=== PATIENT | female | born 1945 | race Caucasian/White ===

== ENCOUNTER → 2021-05-06 | Outpatient (CLI) | payer OTHER | END | disposition home or self-care (01) | LOC: RAH 11:08 | PROVIDERS: ATTEND Internal Medicine Critical Care Medicine | DX: H34.213 Partial retinal artery occlusion, bilateral (principal) | CPT/HCPCS: 93880 ==

== ENCOUNTER 2021-09-23 13:11 | Inpatient (IN) | payer OTHER ==
[~2021-09-23] VITALS: Ht 180.3 cm; Wt 103.2 kg
[2021-09-23 14:15] LABS: BASOPHILS % (AUTO) 0.2 % (0.0-5.0); HEMATOCRIT 39.6 % (36-48); LYMPHOCYTES % (AUTO) 9.7 % (21.0-51.0); MEAN CORPUSCULAR HEMOGLOBIN 30.6 pg (27.0-33.0); MEAN CORPUSCULAR HGB CONC 35.4 g/dL (32.0-36.0); MEAN CORPUSCULAR VOLUME 86.7 fL (79-99); MONOCYTES % (AUTO) 8.4 % (3.0-13.0); NEUTROPHILS % (AUTO) 81.3 % (40.0-77.0); PLATELET COUNT (AUTO) 216 K/uL (130-400); RED BLOOD CELL COUNT(AUTO) 4.57 MIL/uL (4.00-5.50); RED CELL DISTRIBUTION WIDTH 12.8 % (11.0-15.5); WHITE BLOOD COUNT (AUTO) 9.2 K/uL (4.8-10.8)
[2021-09-23 14:27] LABS: CREATININE 1.1 mg/dL (0.5-1.5); POTASSIUM 3.6 mmol/L (3.5-5.1)
[2021-09-23 14:28] LABS: INR 1.06 (0.85-1.15); PROTHROMBIN TIME 11.5 SEC (9.6-11.6)
[2021-09-23 14:29] LABS: PARTIAL THROMBOPLASTIN TIME 24.2 SEC (26.3-35.5)
[2021-09-23 14:33] LABS: BILIRUBIN,TOTAL 0.9 mg/dL (0.2-1.0); TOTAL PROTEIN, SERUM 7.7 g/dL (6.0-8.3)
[2021-09-23 14:36] LABS: B-TYPE NATRIURETIC PEPTIDE 233 pg/mL (0-100)
[2021-09-23] MEDS ORDERED: HYDRALAZINE 20MG/ML VIAL IV PRN (19:30)
[2021-09-23] MEDS: ONDANSETRON 4MG INJ IV PRN (19:44)
[2021-09-23] MEDS: LACTATED RINGERS 1000ML 1,000 ML IV SCH (19:44)
[2021-09-23] MEDS ORDERED: AEC81 PO (20:11)
[2021-09-23] MEDS ORDERED: INSU3INS3 SQ (20:11)
[2021-09-23] MEDS ORDERED: EMPA25TA PO (20:11)
[2021-09-23] MEDS ORDERED: FLUO20CA36 PO (20:11)
[2021-09-23] MEDS ORDERED: DICLOFENAC (20:11)
[2021-09-23] MEDS ORDERED: CELE100 PO (20:11)
[2021-09-23] MEDS ORDERED: SEMA1PEN3 SQ (20:11)
[2021-09-23] MEDS ORDERED: GLIP10TA9 PO (20:11)
[2021-09-23] MEDS ORDERED: PREG150C PO (20:11)
[2021-09-23] MEDS ORDERED: NITR0.4T SL (20:11)
[2021-09-23] MEDS ORDERED: DICLOFENAC 1% TP (20:11)
[2021-09-23] MEDS ORDERED: PIOG15TA66 PO (20:11)
[2021-09-23] MEDS ORDERED: OLOP2.5D16 OP (20:11)
[2021-09-23] MEDS ORDERED: FURO20TA4 PO (20:11)
[2021-09-23] MEDS ORDERED: LOSA25TA41 PO (20:11)
[2021-09-23] MEDS ORDERED: DIPH25TA20 PO (20:11)
[2021-09-23] MEDS ORDERED: ATEN50TA PO (20:11)
[2021-09-23] MEDS ORDERED: DULO60CA64 PO (20:11)
[2021-09-23 22:23] LABS: APPEARANCE,URINE Clear (CLEAR); BILIRUBIN,URINE Negative (NEGATIVE); COLOR,URINE Dark Yellow (YELLOW); GLUCOSE, URINE (UA) >=1000 mg/dL (NEGATIVE); KETONES,URINE 40 mg/dL (NEGATIVE); LEUKOCYTE ESTERASE ,URINE Negative (NEGATIVE); NITRATE,URINE Negative (NEGATIVE); OCCULT BLOOD,URINE Trace (NEGATIVE); PH,URINE 5.5 (5.0-8.0); PROTEIN,URINE 300 mg/dL (NEGATIVE)
[2021-09-23 22:37] LABS: AMPHET/METH SCREEN,URINE NEGATIVE (NEGATIVE); BARBITURATE SCREEN, URINE NEGATIVE (NEGATIVE); BENZODIAZEPINES SCREEN,URINE NEGATIVE (NEGATIVE); CANNABINOID SCREEN,URINE NEGATIVE (NEGATIVE); COCAINE SCREEN,URINE NEGATIVE (NEGATIVE); OPIATE SCREEN,URINE NEGATIVE (NEGATIVE); PHENCYCLIDINE SCREEN,URINE NEGATIVE (NEGATIVE)
[2021-09-23 22:48] LABS: WBC,URINE 0-1 /HPF (0-1)
[2021-09-23 22:49] LABS: BACTERIA,URINE None Seen /HPF (None Seen); SQUAMOUS EPITHELIAL CELL,UR Few /HPF (0-2)
[2021-09-23 22:50] LABS: MUCUS,URINE Moderate LPF (None Seen)
[2021-09-24] VITALS (7 sets, daily range): BP systolic 143–168; BP diastolic 73–93
[2021-09-24] MEDS ORDERED: KETOROLAC 15MG/ML VIAL (15MG/ML) ONE (04:17)
[2021-09-24] MEDS ORDERED: KETOROLAC 15MG/ML VIAL (15MG/ML) IV ONE (04:30)
[2021-09-24] MEDS: LACTATED RINGERS 1000ML 1,000 ML IV SCH ×3 (05:08→23:38)
[2021-09-24 05:14] LABS: BASOPHILS % (AUTO) 0.1 % (0.0-5.0); HEMATOCRIT 37.6 % (36-48); LYMPHOCYTES % (AUTO) 8.6 % (21.0-51.0); MEAN CORPUSCULAR HEMOGLOBIN 30.6 pg (27.0-33.0); MEAN CORPUSCULAR HGB CONC 35.1 g/dL (32.0-36.0); MONOCYTES % (AUTO) 9.2 % (3.0-13.0); NEUTROPHILS % (AUTO) 81.6 % (40.0-77.0); PLATELET COUNT (AUTO) 229 K/uL (130-400); RED BLOOD CELL COUNT(AUTO) 4.32 MIL/uL (4.00-5.50); RED CELL DISTRIBUTION WIDTH 12.9 % (11.0-15.5); WHITE BLOOD COUNT (AUTO) 10.9 K/uL (4.8-10.8)
[2021-09-24 05:32] LABS: CREATININE 1.1 mg/dL (0.5-1.5); MAGNESIUM 1.5 mg/dL (1.80-2.40); PHOSPHORUS 3.1 mg/dL (2.5-4.9); POTASSIUM 3.4 mmol/L (3.5-5.1)
[2021-09-24 06:44] LABS: HEMOGLOBIN A1C 7.9 % (4.0-6.0)
[2021-09-24] MEDS: FAMOTIDINE 20MG VIAL IV SCH (08:02)
[2021-09-24] MEDS ORDERED: FUROSEMIDE 20MG VIAL IV SCH (09:00)
[2021-09-24] MEDS ORDERED: ASPIRIN 81 MG EC TAB PO SCH (09:00)
[2021-09-24] MEDS: INSULIN HUMULIN R 100 UNIT/ML 3ML SQ SCH ×2 (17:14→20:26)
[2021-09-24] MEDS ORDERED: ZOLPIDEM TARTRATE 5 MG TAB PO STA (23:31)
[2021-09-24] MEDS ORDERED: ZOLPIDEM TARTRATE 5 MG TAB ONE (23:35)
[2021-09-25] VITALS (10 sets, daily range): BP systolic 112–160; BP diastolic 51–98
[2021-09-25] MEDS: PHARMACY COMMUNICATION MISC SCH ×2 (00:30→02:59)
[2021-09-25 05:01] LABS: BASOPHILS % (AUTO) 0.3 % (0.0-5.0); EOSINOPHILS % (AUTO) 0.1 % (0.0-8.0); HEMATOCRIT 39.2 % (36-48); LYMPHOCYTES % (AUTO) 10.6 % (21.0-51.0); MEAN CORPUSCULAR HEMOGLOBIN 30.1 pg (27.0-33.0); MEAN CORPUSCULAR HGB CONC 33.9 g/dL (32.0-36.0); MEAN CORPUSCULAR VOLUME 88.7 fL (79-99); MONOCYTES % (AUTO) 10.5 % (3.0-13.0); PLATELET COUNT (AUTO) 209 K/uL (130-400); RED BLOOD CELL COUNT(AUTO) 4.42 MIL/uL (4.00-5.50); RED CELL DISTRIBUTION WIDTH 13.2 % (11.0-15.5); WHITE BLOOD COUNT (AUTO) 10.9 K/uL (4.8-10.8)
[2021-09-25 05:19] LABS: ALBUMIN 3.6 g/dL (3.5-5.0); POTASSIUM 3.1 mmol/L (3.5-5.1); TOTAL PROTEIN, SERUM 6.9 g/dL (6.0-8.3)
[2021-09-25] MEDS ORDERED: METOPROLOL TARTRATE 1 MG/ML 5ML VIAL IV STA (05:35)
[2021-09-25] MEDS: ENOXAPARIN SODIUM 40 MG/0.4 ML SYRINGE SQ SCH ×2 (05:50→10:01)
[2021-09-25] MEDS: POTASSIUM CHLORIDE 10% ELIXIR 20 MEQ/15 ML UDCUP PO PRN (05:51)
[2021-09-25] MEDS ORDERED: KCL 20 MEQ ERTAB PO PRN (06:00)
[2021-09-25] MEDS ORDERED: METOPROLOL SUCCINATE 50 MG TAB.SR.24H PO ONE (06:05)
[2021-09-25] MEDS: INSULIN HUMULIN R 100 UNIT/ML 3ML SQ SCH ×7 (06:10→21:00)
[2021-09-25] MEDS: METOPROLOL SUCCINATE 50 MG TAB.SR.24H PO SCH (06:12)
[2021-09-25] MEDS ORDERED: ATENOLOL 50 MG TABLET PO SCH (09:00)
[2021-09-25] MEDS ORDERED: METOPROLOL SUCCINATE 50 MG TAB.SR.24H PO SCH (09:00)
[2021-09-25] MEDS: FUROSEMIDE 20 MG TABLET PO SCH (09:59)
[2021-09-25] MEDS: KCL 20 MEQ ERTAB PO SCH (10:00)
[2021-09-25] MEDS: PREDNISONE 20 MG TABLET PO SCH (10:00)
[2021-09-25] MEDS: LOSARTAN 25 MG TABLET PO SCH (10:00)
[2021-09-25] MEDS: FAMOTIDINE 20MG VIAL IV SCH (10:01)
[2021-09-25] MEDS: VALACYCLOVIR HCL 500 MG TABLET PO SCH ×3 (10:01→21:24)
[2021-09-25] MEDS: ASPIRIN 81 MG EC TAB PO SCH (10:01)
[2021-09-25] MEDS: DULOXETINE HCL 30 MG CAP PO SCH (10:01)
[2021-09-25 15:12] LABS: POTASSIUM 3.2 mmol/L (3.5-5.1)
[2021-09-25] MEDS ORDERED: INSULIN GLARGINE 100 UNITS/ML 10 ML VIAL SQ SCH (21:00)
[2021-09-25] MEDS: LACTATED RINGERS 1000ML 1,000 ML IV SCH ×2 (21:23→21:30)
[2021-09-26 04:00] VITALS: BP 178/78
[2021-09-26 04:33] LABS: BASOPHILS % (AUTO) 0.1 % (0.0-5.0); HEMATOCRIT 38.9 % (36-48); LYMPHOCYTES % (AUTO) 12.7 % (21.0-51.0); MEAN CORPUSCULAR HEMOGLOBIN 30.2 pg (27.0-33.0); MEAN CORPUSCULAR HGB CONC 34.2 g/dL (32.0-36.0); MEAN CORPUSCULAR VOLUME 88.2 fL (79-99); MONOCYTES % (AUTO) 11.1 % (3.0-13.0); NEUTROPHILS % (AUTO) 75.6 % (40.0-77.0); PLATELET COUNT (AUTO) 255 K/uL (130-400); RED BLOOD CELL COUNT(AUTO) 4.41 MIL/uL (4.00-5.50); RED CELL DISTRIBUTION WIDTH 13.1 % (11.0-15.5); WHITE BLOOD COUNT (AUTO) 10.8 K/uL (4.8-10.8)
[2021-09-26 04:43] LABS: HEMOGLOBIN A1C 8.2 % (4.0-6.0)
[2021-09-26 04:50] LABS: ALBUMIN 3.3 g/dL (3.5-5.0); POTASSIUM 3.2 mmol/L (3.5-5.1); TOTAL PROTEIN, SERUM 6.7 g/dL (6.0-8.3)
[2021-09-26] MEDS: LACTATED RINGERS 1000ML 1,000 ML IV SCH (06:13)
[2021-09-26] MEDS: KCL 20 MEQ ERTAB PO SCH (06:19)
[2021-09-26] MEDS: INSULIN HUMULIN R 100 UNIT/ML 3ML SQ SCH ×7 (06:21→20:11)
[2021-09-26] MEDS: ENOXAPARIN SODIUM 40 MG/0.4 ML SYRINGE SQ SCH (07:14)
[2021-09-26] MEDS: PREDNISONE 20 MG TABLET PO SCH (07:14)
[2021-09-26] MEDS: FUROSEMIDE 20 MG TABLET PO SCH (07:15)
[2021-09-26] MEDS: ASPIRIN 81 MG EC TAB PO SCH (07:15)
[2021-09-26] MEDS: DULOXETINE HCL 30 MG CAP PO SCH (07:15)
[2021-09-26] MEDS: LOSARTAN 25 MG TABLET PO SCH (07:15)
[2021-09-26] MEDS: METOPROLOL SUCCINATE 50 MG TAB.SR.24H PO SCH (07:15)
[2021-09-26] MEDS: FAMOTIDINE 20MG TAB PO SCH (07:16)
[2021-09-26] MEDS ORDERED: BISACODYL 5 MG TABLET.DR PO SCH (07:30)
[2021-09-26 08:08] VITALS: BP 178/83
[2021-09-26] MEDS: VALACYCLOVIR HCL 500 MG TABLET PO SCH ×3 (09:11→20:02)
[2021-09-26] MEDS ORDERED: HYDROCHLOROTHIAZIDE 25 MG TABLET PO SCH (11:00)
[2021-09-26] MEDS ORDERED: LACTULOSE 20 GM/30 ML UDCUP PO SCH (11:00)
[2021-09-26] MEDS ORDERED: LOSARTAN 25 MG TABLET PO SCH (11:00)
[2021-09-26] MEDS ORDERED: BISACODYL 10 MG SUPP.RECT RC SCH (11:00)
[2021-09-26 11:43] VITALS: BP 179/90
[2021-09-26 16:00] VITALS: BP 152/74
[2021-09-26] MEDS ORDERED: METOPROLOL TARTRATE 1 MG/ML 5ML VIAL IV ONE ×2 (19:54→20:50)
[2021-09-26 20:00] VITALS: BP 125/68
[2021-09-26] MEDS: INSULIN GLARGINE 100 UNITS/ML 10 ML VIAL SQ SCH (20:11)
[2021-09-26 20:21] LABS: MAGNESIUM 1.8 mg/dL (1.80-2.40)
[2021-09-26 20:30] LABS: POTASSIUM 2.9 mmol/L (3.5-5.1)
[2021-09-26] MEDS: POTASSIUM CHLORIDE 10% ELIXIR 20 MEQ/15 ML UDCUP PO PRN (20:32)
[2021-09-26 20:33] LABS: APPEARANCE,URINE CLOUDY (CLEAR); BILIRUBIN,URINE NEGATIVE (NEGATIVE); COLOR,URINE YELLOW (YELLOW); GLUCOSE, URINE (UA) 250 mg/dL (NEGATIVE); KETONES,URINE NEGATIVE (NEGATIVE); LEUKOCYTE ESTERASE ,URINE NEGATIVE (NEGATIVE); NITRATE,URINE POSITIVE (NEGATIVE); OCCULT BLOOD,URINE NEGATIVE (NEGATIVE); PROTEIN,URINE 30 mg/dL (NEGATIVE); UROBILINOGEN,URINE 0.2 mg/dL (0.2-1.0)
[2021-09-26] MEDS: ACETAMINOPHEN 500 MG TABLET PO PRN (20:33)
[2021-09-26] MEDS: POTASSIUM CHLORIDE 20MEQ/100ML 100 ML IV PRN (20:35)
[2021-09-26 20:41] LABS: BACTERIA,URINE Moderate /HPF (None Seen); RBC,URINE 0-1 /HPF (0-1); WBC,URINE 0-1 /HPF (0-1)
[2021-09-26 20:42] LABS: AMORPHOUS SEDIMENT,UR Moderate /LPF (None Seen); MUCUS,URINE Rare LPF (None Seen); SQUAMOUS EPITHELIAL CELL,UR Few /HPF (0-2)
[2021-09-26] MEDS: LIDOCAINE HCL-MPF 1% 2ML VIAL IV PRN (20:45)
[2021-09-27] VITALS: BP 131/63
[2021-09-27] MEDS: POTASSIUM CHLORIDE 10% ELIXIR 20 MEQ/15 ML UDCUP PO PRN ×3 (00:02→07:10)
[2021-09-27] MEDS: NITROFURANTOIN MONOHYD/M-CRYST 100 MG CAPSULE PO SCH ×3 (03:48→20:55)
[2021-09-27 04:00] VITALS: BP 137/66
[2021-09-27 05:03] LABS: BASOPHILS % (AUTO) 0.1 % (0.0-5.0); EOSINOPHILS % (AUTO) 0.1 % (0.0-8.0); HEMATOCRIT 41.7 % (36-48); LYMPHOCYTES % (AUTO) 14.4 % (21.0-51.0); MEAN CORPUSCULAR HEMOGLOBIN 30.7 pg (27.0-33.0); MEAN CORPUSCULAR HGB CONC 34.8 g/dL (32.0-36.0); MEAN CORPUSCULAR VOLUME 88.2 fL (79-99); MONOCYTES % (AUTO) 9.2 % (3.0-13.0); NEUTROPHILS % (AUTO) 75.9 % (40.0-77.0); PLATELET COUNT (AUTO) 280 K/uL (130-400); RED BLOOD CELL COUNT(AUTO) 4.73 MIL/uL (4.00-5.50); WHITE BLOOD COUNT (AUTO) 11.7 K/uL (4.8-10.8)
[2021-09-27 05:20] LABS: ALBUMIN 3.3 g/dL (3.5-5.0); BILIRUBIN,TOTAL 0.8 mg/dL (0.2-1.0); CREATININE 1.1 mg/dL (0.5-1.5); POTASSIUM 3.6 mmol/L (3.5-5.1); TOTAL PROTEIN, SERUM 6.6 g/dL (6.0-8.3)
[2021-09-27] MEDS: INSULIN HUMULIN R 100 UNIT/ML 3ML SQ SCH ×7 (07:11→20:56)
[2021-09-27] MEDS: ENOXAPARIN SODIUM 40 MG/0.4 ML SYRINGE SQ SCH (07:28)
[2021-09-27] MEDS: FAMOTIDINE 20MG TAB PO SCH (07:28)
[2021-09-27] MEDS: DULOXETINE HCL 30 MG CAP PO SCH (07:28)
[2021-09-27] MEDS: METOPROLOL SUCCINATE 50 MG TAB.SR.24H PO SCH (07:28)
[2021-09-27] MEDS: PREDNISONE 20 MG TABLET PO SCH (07:28)
[2021-09-27] MEDS: FUROSEMIDE 20 MG TABLET PO SCH (07:28)
[2021-09-27] MEDS: ASPIRIN 81 MG EC TAB PO SCH (07:28)
[2021-09-27] MEDS: LOSARTAN/HYDROCHLOROTHIAZIDE 50-12.5MG TABLET PO SCH (08:31)
[2021-09-27] MEDS: VALACYCLOVIR HCL 500 MG TABLET PO SCH ×3 (08:31→20:55)
[2021-09-27 08:55] VITALS: BP 167/59
[2021-09-27 11:35] VITALS: BP 163/84
[2021-09-27 15:49] VITALS: BP 158/85
[2021-09-27 20:00] VITALS: BP 137/71
[2021-09-27] MEDS: INSULIN GLARGINE 100 UNITS/ML 10 ML VIAL SQ SCH (20:57)
[2021-09-28] VITALS (15 sets, daily range): BP systolic 103–154; BP diastolic 56–115
[2021-09-28] MEDS: ACETAMINOPHEN 500 MG TABLET PO PRN (00:25)
[2021-09-28] MEDS ORDERED: METOPROLOL TARTRATE 1 MG/ML 5ML VIAL IV ONE (02:22)
[2021-09-28] MEDS: METOPROLOL TARTRATE 1 MG/ML 5ML VIAL IV SCH ×2 (02:31→02:48)
[2021-09-28] MEDS ORDERED: DILTIAZEM 50MG VIAL IV STA (02:53)
[2021-09-28] MEDS ORDERED: DILTIAZEM 50MG VIAL IV ONE (02:56)
[2021-09-28] MEDS: ONDANSETRON 4MG INJ IV PRN (03:03)
[2021-09-28] MEDS: DILTIAZEM 125MG+100 ML NS 125 ML IV PRN ×2 (03:07→09:52)
[2021-09-28 03:50] LABS: BASOPHILS % (AUTO) 0.1 % (0.0-5.0); EOSINOPHILS % (AUTO) 0.1 % (0.0-8.0); HEMATOCRIT 47.9 % (36-48); LYMPHOCYTES % (AUTO) 16.8 % (21.0-51.0); MEAN CORPUSCULAR HEMOGLOBIN 30.4 pg (27.0-33.0); MEAN CORPUSCULAR HGB CONC 35.1 g/dL (32.0-36.0); MEAN CORPUSCULAR VOLUME 86.8 fL (79-99); MONOCYTES % (AUTO) 10.1 % (3.0-13.0); NEUTROPHILS % (AUTO) 72.5 % (40.0-77.0); PLATELET COUNT (AUTO) 354 K/uL (130-400); RED BLOOD CELL COUNT(AUTO) 5.52 MIL/uL (4.00-5.50); RED CELL DISTRIBUTION WIDTH 12.8 % (11.0-15.5); WHITE BLOOD COUNT (AUTO) 16.5 K/uL (4.8-10.8)
[2021-09-28 04:07] LABS: ALBUMIN 3.6 g/dL (3.5-5.0); CREATININE 1.1 mg/dL (0.5-1.5); TOTAL PROTEIN, SERUM 7.3 g/dL (6.0-8.3)
[2021-09-28 04:18] LABS: POTASSIUM 2.8 mmol/L (3.5-5.1)
[2021-09-28] MEDS ORDERED: LORAZEPAM 2 MG/ML 1 ML VIAL IVP ONE (04:30)
[2021-09-28] MEDS ORDERED: POTASSIUM CHLORIDE 10MEQ/100ML 200 ML IV ONE (04:33)
[2021-09-28] MEDS ORDERED: MAGNESIUM 2GM PREMIX 50ML 50 ML IV PRN (06:12)
[2021-09-28] MEDS: INSULIN HUMULIN R 100 UNIT/ML 3ML SQ SCH ×7 (06:21→21:06)
[2021-09-28] MEDS: LOSARTAN/HYDROCHLOROTHIAZIDE 50-12.5MG TABLET PO SCH (09:36)
[2021-09-28] MEDS: PREDNISONE 20 MG TABLET PO SCH (09:36)
[2021-09-28] MEDS: NITROFURANTOIN MONOHYD/M-CRYST 100 MG CAPSULE PO SCH ×2 (09:39→21:08)
[2021-09-28] MEDS: DULOXETINE HCL 30 MG CAP PO SCH (09:39)
[2021-09-28] MEDS: FUROSEMIDE 20 MG TABLET PO SCH (09:39)
[2021-09-28] MEDS: FAMOTIDINE 20MG TAB PO SCH (09:40)
[2021-09-28] MEDS: ASPIRIN 81 MG EC TAB PO SCH (09:40)
[2021-09-28] MEDS: VALACYCLOVIR HCL 500 MG TABLET PO SCH ×3 (09:40→21:08)
[2021-09-28] MEDS: METOPROLOL SUCCINATE 50 MG TAB.SR.24H PO SCH (09:40)
[2021-09-28] MEDS: ENOXAPARIN SODIUM 40 MG/0.4 ML SYRINGE SQ SCH (09:40)
[2021-09-28] MEDS: POTASSIUM CHLORIDE 10% ELIXIR 20 MEQ/15 ML UDCUP PO PRN ×3 (09:41→15:00)
[2021-09-28] MEDS: POTASSIUM CHLORIDE 20MEQ/100ML 100 ML IV PRN ×2 (12:26→15:00)
[2021-09-28] MEDS ORDERED: DILTIAZEM 120MG SR CAP PO SCH (13:15)
[2021-09-28 17:48] LABS: CREATININE 1.2 mg/dL (0.5-1.5); POTASSIUM 5.3 mmol/L (3.5-5.1)
[2021-09-28 17:52] LABS: MAGNESIUM 2.2 mg/dL (1.80-2.40); PHOSPHORUS 4.6 mg/dL (2.5-4.9)
[2021-09-28] MEDS: INSULIN GLARGINE 100 UNITS/ML 10 ML VIAL SQ SCH (21:04)
[2021-09-28] MEDS: APIXABAN 5 MG TABLET PO SCH (21:08)
[2021-09-29] VITALS: BP 124/74
[2021-09-29 04:00] VITALS: BP 132/66
[2021-09-29] MEDS: ACETAMINOPHEN 500 MG TABLET PO PRN (05:29)
[2021-09-29] MEDS: INSULIN HUMULIN R 100 UNIT/ML 3ML SQ SCH ×7 (06:14→20:36)
[2021-09-29] MEDS: FAMOTIDINE 20MG TAB PO SCH (09:20)
[2021-09-29] MEDS: NITROFURANTOIN MONOHYD/M-CRYST 100 MG CAPSULE PO SCH ×2 (09:20→20:31)
[2021-09-29] MEDS: LOSARTAN/HYDROCHLOROTHIAZIDE 50-12.5MG TABLET PO SCH (09:20)
[2021-09-29] MEDS: APIXABAN 5 MG TABLET PO SCH ×2 (09:20→20:31)
[2021-09-29] MEDS: ASPIRIN 81 MG EC TAB PO SCH (09:20)
[2021-09-29] MEDS: DULOXETINE HCL 30 MG CAP PO SCH (09:21)
[2021-09-29] MEDS: DILTIAZEM 120MG SR CAP PO SCH (09:21)
[2021-09-29] MEDS: METOPROLOL SUCCINATE 50 MG TAB.SR.24H PO SCH (09:21)
[2021-09-29] MEDS: VALACYCLOVIR HCL 500 MG TABLET PO SCH ×3 (09:22→21:53)
[2021-09-29 12:32] VITALS: BP 136/72
[2021-09-29 16:51] VITALS: BP 129/64
[2021-09-29 20:00] VITALS: BP 112/63
[2021-09-29] MEDS: INSULIN GLARGINE 100 UNITS/ML 10 ML VIAL SQ SCH (20:34)
[2021-09-29] MEDS: METOPROLOL TARTRATE 1 MG/ML 5ML VIAL IV SCH ×3 (20:37→20:59)
[2021-09-30] VITALS: BP 128/59
[2021-09-30 04:00] VITALS: BP 137/73
[2021-09-30] MEDS: INSULIN HUMULIN R 100 UNIT/ML 3ML SQ SCH ×7 (06:17→21:45)
[2021-09-30 08:20] VITALS: BP 139/68
[2021-09-30] MEDS: VALACYCLOVIR HCL 500 MG TABLET PO SCH ×3 (09:12→21:37)
[2021-09-30] MEDS: LOSARTAN/HYDROCHLOROTHIAZIDE 50-12.5MG TABLET PO SCH (09:12)
[2021-09-30] MEDS: DULOXETINE HCL 30 MG CAP PO SCH (09:13)
[2021-09-30] MEDS: NITROFURANTOIN MONOHYD/M-CRYST 100 MG CAPSULE PO SCH (09:13)
[2021-09-30] MEDS: FAMOTIDINE 20MG TAB PO SCH (09:13)
[2021-09-30] MEDS: ASPIRIN 81 MG EC TAB PO SCH (09:13)
[2021-09-30] MEDS: METOPROLOL SUCCINATE 50 MG TAB.SR.24H PO SCH (09:13)
[2021-09-30] MEDS: APIXABAN 5 MG TABLET PO SCH ×2 (09:13→21:38)
[2021-09-30] MEDS: DILTIAZEM 120MG SR CAP PO SCH (09:13)
[2021-09-30 12:12] VITALS: BP 125/74
[2021-09-30 16:30] VITALS: BP 158/64
[2021-09-30 16:45] LABS: BASOPHILS % (AUTO) 0.1 % (0.0-5.0); EOSINOPHILS % (AUTO) 0.1 % (0.0-8.0); HEMATOCRIT 46.6 % (36-48); LYMPHOCYTES % (AUTO) 9.4 % (21.0-51.0); MEAN CORPUSCULAR HEMOGLOBIN 30.2 pg (27.0-33.0); MEAN CORPUSCULAR HGB CONC 34.3 g/dL (32.0-36.0); MEAN CORPUSCULAR VOLUME 88.1 fL (79-99); MONOCYTES % (AUTO) 10.7 % (3.0-13.0); PLATELET COUNT (AUTO) 365 K/uL (130-400); RED BLOOD CELL COUNT(AUTO) 5.29 MIL/uL (4.00-5.50); RED CELL DISTRIBUTION WIDTH 13.3 % (11.0-15.5); WHITE BLOOD COUNT (AUTO) 17.8 K/uL (4.8-10.8)
[2021-09-30 17:02] LABS: CREATININE 1.3 mg/dL (0.5-1.5); POTASSIUM 3.1 mmol/L (3.5-5.1)
[2021-09-30 17:06] LABS: ALBUMIN 3.2 g/dL (3.5-5.0); MAGNESIUM 1.9 mg/dL (1.80-2.40); TOTAL PROTEIN, SERUM 6.7 g/dL (6.0-8.3)
[2021-09-30] MEDS: ONDANSETRON 4MG INJ IV PRN (17:30)
[2021-09-30] MEDS ORDERED: 0.9%NACL 1000ML 1,000 ML IV ONE (18:06)
[2021-09-30] MEDS ORDERED: RENAL DOSE IV SCH (18:30)
[2021-09-30] MEDS ORDERED: MEROPENEM 1 GM VIAL IVP SCH (18:30)
[2021-09-30] MEDS: 0.9%NACL 1000ML 1,000 ML IV SCH (18:30)
[2021-09-30 18:44] LABS: APPEARANCE,URINE CLOUDY (CLEAR); COLOR,URINE DARK YELLOW (YELLOW)
[2021-09-30 18:45] LABS: LEUKOCYTE ESTERASE ,URINE LARGE (NEGATIVE)
[2021-09-30 18:46] LABS: NITRATE,URINE NEGATIVE (NEGATIVE); UROBILINOGEN,URINE 0.2 mg/dL (0.2-1.0)
[2021-09-30 18:47] LABS: OCCULT BLOOD,URINE LARGE (NEGATIVE); PH,URINE 8.5 (5.0-8.0); PROTEIN,URINE >=300 mg/dL (NEGATIVE)
[2021-09-30 18:48] LABS: BILIRUBIN,URINE SMALL (NEGATIVE); GLUCOSE, URINE (UA) NEGATIVE (NEGATIVE); KETONES,URINE NEGATIVE (NEGATIVE)
[2021-09-30 19:05] LABS: BACTERIA,URINE Many /HPF (None Seen); RBC,URINE 26-50 /HPF (0-1); SQUAMOUS EPITHELIAL CELL,UR Rare /HPF (0-2)
[2021-09-30 19:06] LABS: TRIPLE PHOSPHATE CRYSTAL,UR Few /LPF (None Seen)
[2021-09-30] MEDS ORDERED: METOPROLOL SUCCINATE 50 MG TAB.SR.24H PO ONE (19:06)
[2021-09-30] MEDS ORDERED: METOPROLOL SUCCINATE 50 MG TAB.SR.24H PO SCH (19:09)
[2021-09-30 20:00] VITALS: BP 124/72
[2021-09-30] MEDS: MEROPENEM 1 GM VIAL IVP SCH (21:37)
[2021-09-30] MEDS: INSULIN GLARGINE 100 UNITS/ML 10 ML VIAL SQ SCH (21:45)
[2021-09-30] MEDS: ACETAMINOPHEN 500 MG TABLET PO PRN (21:59)
[2021-10-01] VITALS (7 sets, daily range): BP systolic 134–154; BP diastolic 65–91
[2021-10-01] MEDS: POTASSIUM CHLORIDE 20MEQ/100ML 100 ML IV PRN ×3 (01:47→15:44)
[2021-10-01] MEDS: LIDOCAINE HCL-MPF 1% 2ML VIAL IV PRN (01:47)
[2021-10-01 04:52] LABS: BASOPHILS % (AUTO) 0.1 % (0.0-5.0); EOSINOPHILS % (AUTO) 0.1 % (0.0-8.0); HEMATOCRIT 48.3 % (36-48); LYMPHOCYTES % (AUTO) 13.3 % (21.0-51.0); MEAN CORPUSCULAR HEMOGLOBIN 30.3 pg (27.0-33.0); MEAN CORPUSCULAR HGB CONC 33.5 g/dL (32.0-36.0); MEAN CORPUSCULAR VOLUME 90.4 fL (79-99); MONOCYTES % (AUTO) 10.5 % (3.0-13.0); NEUTROPHILS % (AUTO) 75.5 % (40.0-77.0); PLATELET COUNT (AUTO) 364 K/uL (130-400); RED BLOOD CELL COUNT(AUTO) 5.34 MIL/uL (4.00-5.50); RED CELL DISTRIBUTION WIDTH 13.4 % (11.0-15.5); WHITE BLOOD COUNT (AUTO) 16.6 K/uL (4.8-10.8)
[2021-10-01 05:15] LABS: ALBUMIN 2.9 g/dL (3.5-5.0); CREATININE 1.3 mg/dL (0.5-1.5); CRP QUANTITATIVE 11.8 mg/L (0.00-9.0); MAGNESIUM 1.8 mg/dL (1.80-2.40); PHOSPHORUS 4.1 mg/dL (2.5-4.9); POTASSIUM 3.3 mmol/L (3.5-5.1); TOTAL PROTEIN, SERUM 6.1 g/dL (6.0-8.3)
[2021-10-01 06:02] LABS: ERYTHROCYTE SEDIMENTATION RATE 5 MM/HR (0-30)
[2021-10-01] MEDS: INSULIN HUMULIN R 100 UNIT/ML 3ML SQ SCH ×7 (06:24→22:05)
[2021-10-01] MEDS: 0.9%NACL 1000ML 1,000 ML IV SCH ×2 (06:27→11:49)
[2021-10-01] MEDS: LOSARTAN/HYDROCHLOROTHIAZIDE 50-12.5MG TABLET PO SCH (09:38)
[2021-10-01] MEDS: DILTIAZEM 120MG SR CAP PO SCH (09:38)
[2021-10-01] MEDS: MEROPENEM 1 GM VIAL IVP SCH ×2 (09:38→21:45)
[2021-10-01] MEDS: METOPROLOL SUCCINATE 50 MG TAB.SR.24H PO SCH (09:38)
[2021-10-01] MEDS: DULOXETINE HCL 30 MG CAP PO SCH (09:38)
[2021-10-01] MEDS: APIXABAN 5 MG TABLET PO SCH ×2 (09:39→21:44)
[2021-10-01] MEDS: VALACYCLOVIR HCL 500 MG TABLET PO SCH ×3 (09:39→21:45)
[2021-10-01] MEDS: ASPIRIN 81 MG EC TAB PO SCH (09:39)
[2021-10-01] MEDS: FAMOTIDINE 20MG TAB PO SCH (09:39)
[2021-10-01] MEDS ORDERED: POTASSIUM CHLORIDE 20 MEQ/100 ML BAG IV SCH ×2 (16:00→17:00)
[2021-10-01] MEDS: ONDANSETRON 4MG INJ IV PRN (17:39)
[2021-10-01] MEDS: ACETAMINOPHEN 500 MG TABLET PO PRN (17:41)
[2021-10-01] MEDS ORDERED: METOPROLOL SUCCINATE 50 MG TAB.SR.24H PO SCH ×2 (21:00)
[2021-10-01] MEDS: DRONABINOL 2.5 MG CAP PO SCH (21:44)
[2021-10-01] MEDS: INSULIN GLARGINE 100 UNITS/ML 10 ML VIAL SQ SCH (22:06)
[2021-10-02] VITALS: BP 125/60
[2021-10-02 03:56] LABS: BASOPHILS % (AUTO) 0.1 % (0.0-5.0); EOSINOPHILS % (AUTO) 0.2 % (0.0-8.0); HEMATOCRIT 45.3 % (36-48); LYMPHOCYTES % (AUTO) 10.5 % (21.0-51.0); MEAN CORPUSCULAR HEMOGLOBIN 30.5 pg (27.0-33.0); MEAN CORPUSCULAR HGB CONC 33.8 g/dL (32.0-36.0); MEAN CORPUSCULAR VOLUME 90.4 fL (79-99); MONOCYTES % (AUTO) 8.6 % (3.0-13.0); PLATELET COUNT (AUTO) 361 K/uL (130-400); RED BLOOD CELL COUNT(AUTO) 5.01 MIL/uL (4.00-5.50); RED CELL DISTRIBUTION WIDTH 13.6 % (11.0-15.5); WHITE BLOOD COUNT (AUTO) 15.3 K/uL (4.8-10.8)
[2021-10-02 04:00] VITALS: BP 160/74
[2021-10-02 04:16] LABS: ALBUMIN 2.8 g/dL (3.5-5.0); BILIRUBIN,TOTAL 0.9 mg/dL (0.2-1.0); CRP QUANTITATIVE 2.2 mg/L (0.00-9.0); POTASSIUM 3.3 mmol/L (3.5-5.1)
[2021-10-02] MEDS: INSULIN HUMULIN R 100 UNIT/ML 3ML SQ SCH ×4 (06:50→12:47)
[2021-10-02] MEDS: POTASSIUM CHLORIDE 10% ELIXIR 20 MEQ/15 ML UDCUP PO PRN ×2 (07:19→10:17)
[2021-10-02 07:53] VITALS: BP 144/77
[2021-10-02] MEDS: LOSARTAN/HYDROCHLOROTHIAZIDE 50-12.5MG TABLET PO SCH (10:15)
[2021-10-02] MEDS: DILTIAZEM 120MG SR CAP PO SCH (10:15)
[2021-10-02] MEDS: FAMOTIDINE 20MG TAB PO SCH (10:15)
[2021-10-02] MEDS: ASPIRIN 81 MG EC TAB PO SCH (10:15)
[2021-10-02] MEDS: DULOXETINE HCL 30 MG CAP PO SCH (10:15)
[2021-10-02] MEDS: MEROPENEM 1 GM VIAL IVP SCH (10:15)
[2021-10-02] MEDS: METOPROLOL SUCCINATE 50 MG TAB.SR.24H PO SCH (10:16)
[2021-10-02] MEDS: DRONABINOL 2.5 MG CAP PO SCH (10:16)
[2021-10-02] MEDS: APIXABAN 5 MG TABLET PO SCH (10:22)
[2021-10-02 11:47] VITALS: BP 142/73
[2021-10-02 14:11] VITALS: BP 176/68
[2021-10-03] MEDS ORDERED: DULOXETINE HCL 30 MG CAP PO SCH (09:00)
== END 2021-10-02 17:32 | DRG 73 ==
LOC: EDH 13:11 → EDHIP 19:09 → 4CH 23:52 → 4DH 09-24 17:37
PROVIDERS: ADMIT Internal Medicine; ATTEND Internal Medicine
DX: G51.0 Bell's palsy (principal); G92.8 Other toxic encephalopathy; N39.0 Urinary tract infection, site not specified; I47.1 Supraventricular tachycardia; D68.59 Other primary thrombophilia; G31.9 Degenerative disease of nervous system, unspecified; E11.40 Type 2 diabetes mellitus with diabetic neuropathy, unspecified; I10 Essential (primary) hypertension; R33.9 Retention of urine, unspecified; E11.65 Type 2 diabetes mellitus with hyperglycemia; E66.9 Obesity, unspecified; E87.6 Hypokalemia; E78.5 Hyperlipidemia, unspecified; E78.00 Pure hypercholesterolemia, unspecified; R13.12 Dysphagia, oropharyngeal phase; I48.0 Paroxysmal atrial fibrillation; D72.829 Elevated white blood cell count, unspecified; B96.20 Unspecified Escherichia coli [E. coli] as the cause of diseases classified elsewhere; G89.29 Other chronic pain; E83.42 Hypomagnesemia; H53.2 Diplopia; Z68.34 Body mass index [BMI] 34.0-34.9, adult; Z79.01 Long term (current) use of anticoagulants; Z88.0 Allergy status to penicillin; Z79.899 Other long term (current) drug therapy; Z88.5 Allergy status to narcotic agent; Z88.8 Allergy status to other drugs, medicaments and biological substances; Z86.73 Personal history of transient ischemic attack (TIA), and cerebral infarction without residual deficits; Z82.49 Family history of ischemic heart disease and other diseases of the circulatory system
CPT/HCPCS: 36415; 70450; 70544; 70551; 71045; 74018; 80048; 80053; 80061; 80305; 81001; 82550; 82948; 83036; 83721; 83735; 83880; 84100; 84132; 84145; 84484; 85025; 85610; 85651; 85730; 86140; 87077; 87088; 87186; 92522; 92526; 92610; 93005; 93306; 93880; 97039; 99291; G0378; J0360; J1650; J1815; J1885; J1940; J2060; J2185; J2405; J3475; J3480; J3490; J7030; J7120; Q0167